=== PATIENT | female | born 1980 | race Caucasian/White ===

== ENCOUNTER 2019-12-11 17:12 | Emergency (ER) | payer BC, SELFPAY ==
--- NOTE | 2019-12-11 17:18 | ED.WOUNDLAC ---
HPI - Wound/Laceration General Chief Complaint: Wound/Laceration Stated Complaint: Cut to left heel Time Seen by Provider: 12/11/19 17:18 Source: patient and RN notes reviewed History of Present Illness HPI narrative: Patient is a 39-year-old female who presents the urgent care with complaints of a laceration to the left heel. Patient states that she sliced it on the bottom of a hua truck. States that she is not up-to-date on her tetanus. Denies any other acute complaints or injuries. No acute distress noted. Patient read the plan of care. Related Data Home Medications Medication Instructions Recorded Confirmed No Home Medications 12/11/19 12/11/19 Allergies Allergy/AdvReac Type Severity Reaction Status Date / Time No Known Allergies Allergy Verified 12/11/19 17:26 Review of Systems Review of Systems: Narrative: CONSTITUTIONAL: Denies fever, chills, or sweats. EYES: Denies visual changes, redness, or discharge. ENT: Denies rhinorrhea, congestion, sore throat, or otalgia. CARDIOVASCULAR: Denies chest pain, palpitations, or edema. RESPIRATORY: Denies cough or dyspnea. GASTROINTESTINAL: Denies abdominal pain, nausea, vomiting, or diarrhea. GENITOURINARY: Denies dysuria or hematuria. SKIN: Reports of a laceration to the left heel MUSCULOSKELETAL: Denies back pain, joint pain, or myalgia. NEUROLOGIC: Denies headache, numbness, or weakness. All other systems reviewed are negative, except as documented in HPI. PMFSH Comments At the time of my signature, I reviewed and agree with the nursing past medical, surgical, social, and family history. There is no relevant family history pertinent to the patient complaint. Exam Narrative: Exam Narrative: GENERAL: This is a well-nourished, well-developed patient, in no apparent distress. HEAD: normocephalic, atraumatic. EYES: PERRL. Sclera clear/white. Vision is grossly intact. EARS: External ears normal NOSE: External nose normal with no obvious nasal discharge, nares without redness, no rhinorrhea. THROAT: Mucous membranes moist NECK: Neck supple SKIN: 1.5 cm superficial laceration to the medial aspect of the left heel NEURO: awake, alert, and oriented to person, place and time. There were no obvious focal neurologic abnormalities. EXTREMITIES: No clubbing, cyanosis, or edema. Course Vital Signs Vital signs: Vital Signs Temperature 98.4 F 12/11/19 17:20 Pulse Rate 66 12/11/19 17:20 Respiratory Rate 16 12/11/19 17:20 Blood Pressure 140/70 12/11/19 17:20 Pulse Oximetry 99 12/11/19 17:20 Temperature 98.4 F 12/11/19 17:20 Pulse Rate 66 12/11/19 17:20 Respiratory Rate 16 12/11/19 17:20 Blood Pressure 140/70 12/11/19 17:20 Pulse Oximetry 99 12/11/19 17:20 Reviewed Procedures Laceration Laceration 1: Site: lower extremity Side (If applicable): left Size (cm): 1.5 Description: linear Local Anesthetic: none Pre-repair: irrigated (Technique care normal saline) ====== Skin Level ====== Skin layer closed with: dermabond and steri strips ====== Subcutaneous Layer ====== ====== Muscle Layer ====== ====== Tendon Layer ====== Dressing: Superficial linear laceration 1.5 cm in length to the medial aspect of the left heel. Cleansed and irrigated with normal saline intact and care. Approximated with Dermabond and Steri-Strips. Patient tolerated procedure well. MDM - Wound/Laceration MDM Narrative Medical decision making narrative: Advised the patient to clean the area with plain Dial soap and water as needed. Do not submerge the foot in warm hot water for long periods of time, it will affect the length of time the Dermabond is occlusive to the wound. Do not remove the Dermabond. Allow it to fall off on its own. Should last approximately 5 to 10 days, depending on care. May reinforce Steri-Strips. After Dermabond and Steri-Strips wear off, may use Neosporin to the
[2019-12-11 17:20] VITALS: BP 140/70; PULSE 66; RESP 16; TEMP 36.9; O2SAT 99
[2019-12-11] MEDS: TETANUS,DIPHTHERIA,AC PERTUSSIS ADULT (0.5 ML) BOOSTRIX IM (17:33)
== END 2019-12-11 17:50 | disposition home or self-care (01) ==
PROVIDERS: Emergency Provider Nurse Practitioner Family
DX: S91.312A Laceration without foreign body, left foot, initial encounter (principal); W45.8XXA Other foreign body or object entering through skin, initial encounter; Z23 Encounter for immunization
CPT/HCPCS: 12001; 90471; 90715; 99202; G0463

== ENCOUNTER 2024-07-30 02:57 | Emergency (ER) | payer OTHER, SELFPAY ==
[2024-07-30] VITALS (7 sets, daily range): BP systolic 113–162; BP diastolic 69–93; PULSE 83–100; RESP 13–21; TEMP 36.4; O2SAT 99–100
[2024-07-30] MEDS: LACTATED RINGERS 1,000 ML 999 ML IV CONT (03:32)
[2024-07-30] MEDS: LORazepam INJ (*CRX) 2 MG/ML VIAL IV PUSH (03:32)
--- NOTE | 2024-07-30 03:38 | ED.GENADULT ---
HPI - General Adult General Chief complaint: Unspecified Stated complaint: LLE, ABD PAIN, POSS SZ Time Seen by Provider: 07/30/24 03:37 History of Present Illness HPI narrative: 44-year-old female with a history substance abuse including methamphetamine use daily. She presents to the emergency department today with no clear complaint but thinks she might of had several seizures today. No reported history of seizures. Patient states that she was with her boyfriend, last use meth 2 days ago. Crying hysterically in triage, talking nonsense to staff and states ?please do not kill me. During my initial assessment the patient she has calmed down quite a bit, IV was established by nursing staff. She states that she is not sure what happened but was having issues with her left ankle and thinks it could be related to a potential seizure. Denies any falls or trauma. 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 Does not follow up with doctors outside the hospital. Not take any prescription medications at all. Smokes marijuana and smokes methamphetamine but denies any injection drug use or other stimulants such as cocaine. Denies any alcohol use today. No history of drinking significantly or history of withdrawal. Related Data Home Medications ?Medication ?Instructions ?Recorded ?Confirmed ?Last Taken ?Type No Home Medications 12/11/19 12/11/19 Unknown History Allergies Allergy/AdvReac Type Severity Reaction Status Date / Time ibuprofen Allergy messes Verified 07/30/24 03:03 with my blood pressure Review of Systems Review of Systems: As reviewed above in HPI Exam Narrative: GENERAL: Tearful and hysterical, redirectable HEAD: [Normocephalic, atraumatic.] EYES: [PERRLA and EOMI.] ENT: Nares clear, no rhinorrhea or epistaxis. Mucous membranes moist. NECK: Supple. CHEST: [Clear to auscultation. No respiratory distress.] HEART: [Regular rate and rhythm]. No murmur heard. [Normal peripheral pulses.] ABDOMEN: [Soft, nondistended], [nontender], [No rigidity or guarding] EXTREMITIES: Normal range of motion. [No edema.] SKIN: Cool distal extremities bilaterally with some skin mottling but otherwise dry proximal extremities. No rashes or lesions. NEURO: [No focal deficits]. Alert and oriented [x3.] Moving all extremities equally, no appreciable focal deficits. Not postictal. PSYCH: Hysterical, agitated, not combative, redirectable Course Vital Signs Vital signs: Vital Signs Temperature 36.4 C 07/30/24 03:11 Pulse Rate 100 07/30/24 03:11 Respiratory Rate 13 07/30/24 03:11 Blood Pressure 162/89 H 07/30/24 03:11 Pulse Oximetry 99 07/30/24 03:11 Oxygen Delivery Room Air 07/30/24 03:11 Temperature 36.4 C 07/30/24 03:11 Pulse Rate 83 07/30/24 06:01 Respiratory Rate 18 07/30/24 06:01 Blood Pressure 134/84 07/30/24 06:01 Pulse Oximetry 100 07/30/24 06:01 Oxygen Delivery Room Air 07/30/24 03:11 Medical Decision Making MDM Narrative Medical decision making narrative: 44-year-old female with history of substance abuse with methamphetamine and marijuana nearly daily. She presents to the emergency depart with a chief complaint of potential seizure. According to the patient who is the primary historian she thinks she had multiple seizures today as complaining of left ankle injury. Denies any falls or trauma. States she has a history of seizures whenever she gets traumatic brain injuries. Does not take any anticonvulsant medications, does not seek medical attention regularly. Denies any anxiousness but is very hysterical and anxious, agitated appearing to triage. Brought in by EMS. Patient is very poor historian, admits to recent meth use 2 days ago but denies any suicidal or homicidal ideation. Denies any injection drug use or drinking alcohol. Patient is hypertensive but no tachycardia, fever, hypoxia or tachypnea. She has some cool extremities globally but otherwise warm proximal extremities. States that she lives in a shed and likely at some cold exposure given the weather, no overlying frostbite or chilblains are seen. Suspicion presently is for meth induced psychosis, agitation from substance abuse, potential for organic pathology such as seizure or epilepsy or less likely but still possible. She is not postictal appearance, has no signs of visual trauma. She has complained of left ankle pain but no overlying skin changes or range of motion restrictions. Will obtain CT of the head, x-ray of her ankle, toxicological screenings with urine drug screen, Tylenol salicylates and alcohol panel, CBC, CMP, lactic acid. She was given 2 mg of IV Ativan for agitation and seizure prophylaxis and fluid bolus provided. Workup shows no leukocytosis or anemia. Normal platelet count. Electrolytes within normal limits, normal renal function, normal hepatic function, normal glucose, negative lactic acid. Normal TSH, negative sitting test. Negative viral swabs. Negative toxicological screenings. X-ray shows no ankle fracture. Straight chest x-ray shows no cardiopulmonary disease. Head CT shows no acute intracranial abnormalities. Patient was observed in the ER for numerous hours without any return of the suspected seizure-like activity. Patient has had hemodynamic stability here without any acute concerns. Responded well after medications and was no longer as agitated or combative. Patient refused to give a urine sample. She is safe for discharge home at this time with likely suspected methamphetamine use causing her presentation. Medical Records Medical records reviewed: Yes I reviewed the external patient's medical records. Vital Signs Vital Signs: Vital Signs Temperature 36.4 C 07/30/24 03:11 Pulse Rate 100 07/30/24 03:11 Respiratory Rate 13 07/30/24 03:11 Blood Pressure 162/89 H 07/30/24 03:11 Pulse Oximetry 99 07/30/24 03:11 Oxygen Delivery Room Air 07/30/24 03:11 Temperature 36.4 C 07/30/24 03:11 Pulse Rate 83 07/30/24 06:01 Respiratory Rate 18 07/30/24 06:01 Blood Pressure 134/84 07/30/24 06:01 Pulse Oximetry 100 07/30/24 06:01 Oxygen Delivery Room Air 07/30/24 03:11 Lab Data Lab results reviewed: Yes I reviewed the patient's lab results. 07/30/24 03:28 07/30/24 03:28 Labs: Lab Results 07/30/24 07/30/24 07/30/24 Range/Units 03:28 03:28 06:29 WBC 9.3 (4.5-10.0) K/mm3 RBC 4.71 (4.2-5.4) M/mm3 Hgb 15.2 H (12.0-15.0) g/dL Hct 45.3 (37.0-47.0) % MCV 96.2 (80-100) fl MCH 32.3 (26-34) pg MCHC 33.6 (32-36) g/dl RDW 12.2 (11.5-14.5) % Plt Count 330 (150-375) k/mm3 MPV 9.0 (7.4-10.4) fl Immature Gran % (Auto) 0.2 (0-0.5) % Neut % (Auto) 59.5 (45.5-73.1) % Lymph % (Auto) 30.9 (18.3-44.2) % Charles % (Auto) 7.7 (2.6-8.5) % Eos % (Auto) 0.9 (0-4.4) % Baso % (Auto) 0.8 (0.2-1.2) % Lymph # (Auto) 2.87 (0.9-3.2) K/mm3 Charles # (Auto) 0.7 H (0.1-0.6) K/mm3 Eos # (Auto) 0.1 (0-0.3) K/mm3 Baso # (Auto) 0.1 (0.0-0.1) K/mm3 Abs Immat Gran (auto) 0.02 (0.00-0.031) K/mm3 Absolute Neuts (auto) 5.5 (1.3-6.7) K/mm3 Absolute Nucleated RBC 0.000 (0.0-0.012) K/mm3 Nucleated RBC % 0.0 (0.0-0.2) % Sodium 140 (137-145) mmol/L Potassium 4.0 (3.4-5.0) mmol/L Chloride 104 (98-107) mmol/L Carbon Dioxide 30 (22-30) mmol/L Anion Gap 6 (4-12) mmol/L BUN 12 (7-17) mg/dL Creatinine 0.62 L (0.7-1.0) mg/dL Estim Creat Clear Calc 97 ml/min Estimated GFR > 60 (59 - ) Glucose 92 (65-110) mg/dL Lactic Acid 0.8 (0.7-2.0) mmol/L Calcium 9.1 (8.4-10.2) mg/dL Total Bilirubin 0.9 (0.2-1.3) mg/dL AST 32 (14-36) U/L ALT 19 (6-35) U/L Alkaline Phosphatase 63 (38-126) U/L Total Protein 7.0 (6.3-8.2) g/dL Albumin 4.3 (3.5-5.1) g/dL TSH 4.640 (0.465-4.680) uIU/mL Serum HCG, Qual Negative Salicylates < 1.0 L Cancelled (2-20) mg/dL Acetaminophen < 10 L (10-30) ug/mL Ethyl Alcohol < 10 (<10) mg/dL Influenza A (RT-PCR) Negative (Negative) Influenza B (RT-PCR) Negative (Negative) RSV (RT-PCR) Negative (Negative) SARS-CoV-2 RNA (RT-PCR) Negative (Negative) Imaging Data Attestation: I personally reviewed and interpreted this imaging study as follows: My impression: Impressions Head CT 07/30/24 05:23 IMPRESSION: 1. No acute intracranial abnormality. Chest X-Ray 07/30/24 05:26 IMPRESSION: 1: NO ACUTE CARDIOPULMONARY DISEASE. Ankle X-Ray 07/30/24 05:27 Impression: 1: No acute fracture. Discharge Plan Discharge Clinical Impression: Seizure-like activity, Methamphetamine use Patient Disposition: Home, Self-Care Condition: Stable Instructions: Antibiotic Form, Nonepileptic Seizures (DC), Methamphetamine Use Disorder (ED) Additional Instructions: Your workup appears very reassuring, no signs of any seizure activity while here in the emergency department, laboratory studies were all normal. Your symptoms likely were secondary to the recent meth use you had. Follow-up with regular doctor, stop taking any illicit substances. Return with any new concerns. Patient Language: German Prescriptions: No Action No Home Medications Follow-up/Referrals: PHYSICIAN,WEB DEVELOPMENT CONSULTANT [Primary Care Provider] - Time of Disposition: 07:20
[2024-07-30 03:42] LABS: Basophils Absolute Auto 0.1 K/mm3 (0.0-0.1); Basophils Percent Auto 0.8 % (0.2-1.2); Eosinophils Absolute Auto 0.1 K/mm3 (0-0.3); Eosinophils Percent Auto 0.9 % (0-4.4); Hematocrit 45.3 % (37.0-47.0); Hemoglobin 15.2 g/dL (12.0-15.0); Immature Granulocyte Absolute 0.02 K/mm3 (0.00-0.031); Immature Granulocyte Percent A 0.2 % (0-0.5); Lymphocytes Absolute Auto 2.87 K/mm3 (0.9-3.2); Lymphocytes Percent Auto 30.9 % (18.3-44.2); Mean Corpuscular HGB Conc 33.6 g/dl (32-36); Mean Corpuscular Hemoglobin 32.3 pg (26-34); Mean Corpuscular Volume 96.2 fl (80-100); Monocytes Absolute Auto 0.7 K/mm3 (0.1-0.6); Monocytes Percent Auto 7.7 % (2.6-8.5); Neutrophils Absolute Auto 5.5 K/mm3 (1.3-6.7); Neutrophils Percent Auto 59.5 % (45.5-73.1); Platelet Count Result 330 k/mm3 (150-375); Red Blood Count 4.71 M/mm3 (4.2-5.4); Red Cell Distribution Width 12.2 % (11.5-14.5); White Blood Count 9.3 K/mm3 (4.5-10.0)
[2024-07-30 03:54] LABS: Alanine Aminotransferase 19 U/L (6-35); Albumin Level 4.3 g/dL (3.5-5.1); Alkaline Phosphatase 63 U/L (38-126); Anion Gap 6 mmol/L (4-12); Aspartate Amino Transferase 32 U/L (14-36); Bilirubin,Total 0.9 mg/dL (0.2-1.3); Blood Urea Nitrogen 12 mg/dL (7-17); Calcium 9.1 mg/dL (8.4-10.2); Carbon Dioxide 30 mmol/L (22-30); Chloride 104 mmol/L (98-107); Estimated CRCL calculation 97 ml/min; Estimated Glomerular Filt Rate > 60; Glucose 92 mg/dL (65-110); Lactic Acid Reflex 0.8 mmol/L (0.7-2.0); Sodium 140 mmol/L (137-145)
[2024-07-30 06:38] LABS: Acetaminophen < 10 ug/mL (10-30); Ethanol < 10 mg/dL (<10); Salicylate < 1.0 mg/dL (2-20)
[2024-07-30 06:42] LABS: SPREG INTERNAL CONTROL Positive; Serum Qual hCG Negative
[2024-07-30 07:13] LABS: Influenza A QL RT-PCR Negative (Negative); Influenza B QL RT-PCR Negative (Negative); RSV RNA, RT-PCR Negative (Negative); SARS-CoV-2 RNA PCR Negative (Negative)
== END 2024-07-30 07:47 | disposition home or self-care (01) ==
LOC: ANHED 07:33
PROVIDERS: Emergency Provider Student in an Organized Health Care Education/Training Program
DX: R56.9 Unspecified convulsions (principal); F15.10 Other stimulant abuse, uncomplicated; Z20.822 Contact with and (suspected) exposure to COVID-19; R00.0 Tachycardia, unspecified; R94.31 Abnormal electrocardiogram [ECG] [EKG]
CPT/HCPCS: 36415; 70450; 71045; 73610; 80053; 80143; 80179; 82077; 83605; 84443; 84703; 85025; 87637; 93005; 96361; 96374; 99284; J2060; J7120